=== PATIENT | male | born 1955 | race Caucasian/White ===

== ENCOUNTER 2018-09-26 08:17 | Inpatient (IN) | payer MEDICARE, OTHER ==
[~2018-09-26] VITALS: Ht 172.7 cm; Wt 77.7 kg
[2018-09-26] MEDS ORDERED: NITROGLYCERIN 0.4 MG SUBL TABLET As Ordered ONE (08:25)
[2018-09-26] MEDS ORDERED: methylPREDNISolone INJ 125 MG/2 ML VIAL (J2930) IV ONE (08:30)
[2018-09-26] MEDS ORDERED: SPIR1CAP INH (08:31)
[2018-09-26] MEDS ORDERED: VENTAER INH (08:31)
[2018-09-26] MEDS: NITROGLYCERIN 0.4 MG SUBL TABLET SL PRN ×3 (08:36→08:57)
[2018-09-26] MEDS: IPRATROPIUM 0.5MG/ALBUTEROL 2.5MG INH SOL UD 3ML (DUONEB)(J7620) NEB PRN ×3 (08:36→09:12)
[2018-09-26 08:51] LABS: HEMATOCRIT 44.7 % (42.0-52.0); HEMOGLOBIN 15.1 g/dl (13.5-17.5); MEAN CORPUSCULAR HEMOGLOBIN 31.6 pg (27.0-33.0); MEAN CORPUSCULAR HGB CONC 33.8 g/dl (32.0-36.5); MEAN CORPUSCULAR VOLUME 93.5 fl (80.0-96.0); PLATELET COUNT, AUTOMATED 241 10^3/uL (150-450); RED BLOOD COUNT 4.78 10^6/uL (4.30-6.10)
[2018-09-26] MEDS ORDERED: PROAAER10 INH (08:53)
[2018-09-26 08:55] LABS: ABG HCO3 24.9 MEQ/L (22.0-26.0); ABG O2 SATURATION 99.2 % (95.0-99.0); ABG PARTIAL PRESSURE O2 191.1 mmHg (75.0-100.0); ABG STANDARD HCO3 21.3 MEQ/L (22.0-26.0); ABG TOTAL CO2 26.8 MEQ/L (23.0-31.0)
[2018-09-26 08:56] LABS: ABG PARTIAL PRESSURE CO2 61.6 mmHg (35.0-45.0); ABG pH (ARTERIAL) 7.225 UNITS (7.350-7.450)
--- NOTE | 2018-09-26 08:56 | REP ---
The portable chest, single frontal view, 08:32 a.m.: There are no comparisons. The lung joy are clear. The cardiac size is normal. The gigi, mediastinum, and skeletal structures are unremarkable. Impression: Negative portable chest. Electronically Signed by Phani Pena MD 09/26/2018 08:48 A
[2018-09-26 08:57] VITALS: BP 173/89
[2018-09-26] MEDS ORDERED: MORPHINE 4 MG/ML 1ML VIAL/SYRINGE (J2270) As Ordered ONE (09:12)
[2018-09-26] MEDS ORDERED: MORPHINE 4 MG/ML 1ML VIAL/SYRINGE (J2270) IV ONE (09:15)
[2018-09-26] MEDS ORDERED: ALBUTEROL SULFATE 2.5 MG/0.5 ML INH NEB SOLN NEB ONE (09:15)
[2018-09-26] MEDS ORDERED: MUCI1TAB16 PO (09:21)
[2018-09-26] MEDS ORDERED: SPIR12.9 INH (09:21)
[2018-09-26] MEDS ORDERED: ADVA115A INH (09:21)
[2018-09-26 09:29] LABS: WHITE BLOOD COUNT 10.4 10^3/uL (4.0-10.0)
[2018-09-26 09:32] LABS: EOSINOPHILS 3 % (0-5); LYMPHOCYTES 60 % (16-52); METAMYELOCYTES 1 % (0-0); MONOCYTES 4 % (0-8); NEUTROPHILS 32 % (35-75); PLATELET ESTIMATE NORMAL (NORMAL)
[2018-09-26 09:56] LABS: ALBUMIN 3.9 GM/DL (3.2-5.2); ALT/SGPT 24 U/L (12-78); BILIRUBIN,DIRECT 0.1 MG/DL (0.0-0.2); BILIRUBIN,TOTAL 0.4 MG/DL (0.2-1.0); BLOOD UREA NITROGEN 23 MG/DL (7-18); CALCIUM LEVEL 8.6 MG/DL (8.8-10.2); CARBON DIOXIDE LEVEL 25 MEQ/L (21-32); CHLORIDE LEVEL 111 MEQ/L (98-107); CK-MB VALUE MASS 6.4 NG/ML (<3.6); CPK CREATINE PHOSPHOKINASE 514 U/L (39-308); CREATININE FOR GFR 1.21 MG/DL (0.70-1.30); FREE T4 1.07 NG/DL (0.76-1.46); GLOMERULAR FILTRATION RATE > 60.0 (>49); GLUCOSE, FASTING 186 MG/DL (70-100); LIPASE 113 U/L (73-393); MB/CK RELATIVE INDEX 1.25 (< OR =4); NT-PRO BNP 32 PG/ML (<125); POTASSIUM SERUM 4.4 MEQ/L (3.5-5.1); SODIUM LEVEL 143 MEQ/L (136-145); TOTAL PROTEIN 7.1 GM/DL (6.4-8.2); TROPONIN I 0.02 NG/ML (< 0.10)
[2018-09-26] MEDS ORDERED: ISOVUE-370 76% 100ML VIAL (Q9967) As Ordered ONE (10:13)
[2018-09-26 11:03] LABS: ABG BASE EXCESS -5.3 (-2.0-2.0); ABG HCO3 20.2 MEQ/L (22.0-26.0); ABG PARTIAL PRESSURE CO2 39.6 mmHg (35.0-45.0); ABG PARTIAL PRESSURE O2 92.4 mmHg (75.0-100.0); ABG STANDARD HCO3 20.1 MEQ/L (22.0-26.0); ABG TOTAL CO2 21.4 MEQ/L (23.0-31.0); ABG pH (ARTERIAL) 7.326 UNITS (7.350-7.450)
--- NOTE | 2018-09-26 11:24 | REP ---
CT of the chest with IV contrast, CT pulmonary artery angiography protocol: The pulmonary arteries are suboptimally opacified as a consequence of timing the scan to the IV contrast bolus. There are no emboli are identified in the pulmonary trunk or central pulmonary arteries. No emboli are identified in the pulmonary lobe or segment branches. There are no infiltrates or pleural effusions. There are no masses or nodules. There is no mediastinal or hilar lymphadenopathy or mass. There is no axillary lymphadenopathy. The thoracic aorta is unremarkable. The cardiac size is normal. There is a 4.6 cm hiatal hernia. The visualized upper abdominal contents are, otherwise, unremarkable except for surgical clips in the left upper quadrant. Impression: The pulmonary arteries are suboptimally opacified. No pulmonary emboli are identified. Hiatal hernia. Surgical clips in the abdominal left upper quadrant. Lung joy are clear. Electronically Signed by Phani Pena MD 09/26/2018 11:16 A
--- NOTE | 2018-09-26 11:28 | REP ---
CT of the abdomen pelvis with IV contrast, without bowel contrast: The studies performed. Contiguous with the chest CT. There is a hiatal hernia. There are surgical clips in the abdominal left upper quadrant. The visualized lower lung joy otherwise unremarkable. The hepatic parenchyma is homogeneous. The gallbladder, pancreas and spleen are normal size and unremarkable. The adrenals are unremarkable. The kidneys are unremarkable. The abdominal aorta is unremarkable. There is no bowel distension or obstruction. There are no diverticula. The bowel and mesentery are otherwise unremarkable. Pelvis: The appendix is unremarkable. The bladder is unremarkable. There is no pelvic adenopathy or ascites. Impression: Hiatal hernia. Surgical clips in the left upper quadrant. No diverticula. No ascites, adenopathy or mass. Otherwise, negative CT of the abdomen and pelvis. Electronically Signed by Phani Pena MD 09/26/2018 11:20 A
[2018-09-26] MEDS ORDERED: IPRATROPIUM 0.5MG/ALBUTEROL 2.5MG INH SOL UD 3ML (DUONEB)(J7620) NEB PRN (12:30)
--- NOTE | 2018-09-26 12:48 | HPEPDOC ---
General Date of Admission Sep 26, 2018 at 12:23 Chief Complaint The patient is a 62-year-old male who presented to the ER with complaints of sh ortness of breath History of Present Illness Patient is a 62-year-old male with a PMHx of Alpha-1 antitrypsin deficiency, chronic active smoker, Hx of Orthostatic hypotension, Esophageal ulcers s/p surgical tube placement (2003) who presented to the ER with compla ins of shortness of breath. Patient has reported that he is originally from [place] and was camping in the [facility] since last Friday. Patient reports that around that time. Hes been coughing and expressing a runny nose. Denies any sore throat or watery eyes. Patient reports that usually he wakes up in the morning and experiences a significant coughing episode, which helps to resolve his breathing difficulty. This morning patient had the same event, however, was unable to relieve his sh ortness of breath. Patient reports that he takes Mucinex 1200 twice a day regularly at the directio n of his sharepoint application developer, Dr. Cruz in [place]. Patient reported that today he was coughing and was unable to clear his secretions progressed to worsening of his shortness of breath and associated wheezing. Patient denied any chest pain, palpitations or fevers / chills. Upon arrival to the emergency room, patient was in severe respiratory distress and he was found to be saturating at 79% on room air. Patient had an initial ABG collected which had revealed severe respiratory acidosis and patient was placed on a BiPAP device. Patient remained on BiPAP device for several hours and repeat ABG showed resolution of his respiratory acidosis. Currently patient denies any nausea, vomiting, abdominal pain. Has not yet had a bowel movement today. Denies any urinary discomfort. Patient reports that his weight has increased 40 - 50 pounds over the duration of 1 year. Reports that his appetite has been poor. Home Medications Scheduled Fluticasone Propion/Salmeterol (Advair Hfa 115-21 Mcg Inhaler) 12 Gm Hfa.aer.ad, 2 PUFF INH BID, (Reported) Guaifenesin (Mucinex) 1,200 Mg Tab.er.12h, 1,200 MG PO Q12H, (Reported) Tiotropium Ramer (Spiriva Respimat) 4 Gm Mist.inhal, 2 INHALATION INH DAILY, (Reported) Scheduled PRN Albuterol Sulfate (Proair Hfa) 8.5 Gm Hfa.aer.ad, 2 PUFF INH Q4H PRN for SOB/WHEEZING, (Reported) Allergies Coded Allergies: No Known Allergies (Unverified , 09/26/18) Past Medical History Medical History Alpha-1 antitrypsin deficiency, chronic active smoker, Hx of Orthostatic hypotension, Esophageal ulcers s/p surgical tube placement (2003) Surgical History Hernia repair (2003) Dislocation / fracture of 3rd to 5th digit on Left hand s/p repair Left shoulder injury - s/p repair (03/2018) Family History - Mother in her 90s with reported heart problems - Father with history of Huntingtons disease Social History - Denies the use of illicit drugs; patient is an active smoker of 50 years at 1 [facility]; reports social alcohol use - Denies recent travel or sick contacts - Lives with ; from [place] - Occupation; currently on disability Review of Systems Other systems 10 point review of systems complete, all negative otherwise stated in HPI Vital Signs - Vitals: BP 126/60, HR 87, RR 22, Sat 97%NC2L, Temp - General: Lying in bed, No acute distress, Currently can talk in full sentence s, AAOx3 - HEENT: NC, AT, PERRLA - CVS: Tachycardia, +S1S2 - Lungs: Fair air entry bilaterally, Clear to auscultation, No wheezing / rales / rhonchi - Abdomen: Soft, Non-distended, Non-tender, Midline abdominal scar noted - Extremities: No lower extremity edema, No calf tenderness - Neuro: No focal motor or sensory deficit - Skin: No visible rashes Laboratory Data Labs 24H Laboratory Tests 2 09/26/18 08:32: White Blood Count 10.4H, Red Blood Count 4.78, Hemoglobin 15.1, Hematocrit 44.7, Mean Corpuscular Volume 93.5, Mean Corpuscular Hemoglobin 31.6, Mean Corpuscular Hemoglobin Concent 33.8, Red Cell Distribution Width 12.9, Platelet Count 241, Lymphocytes # (Auto) , Nucleated Red Blood Cells % (auto) 0.0, Neutrophils 32L, Lymphocytes (Manual) 60H, Monocytes (Manual) 4, Eosinophils (Manual) 3, Metamyelocytes 1H, Platelet Estimate NORMAL, Anion Gap 7L, Glomerular Filtration Rate > 60.0, Calcium Level 8.6L, Aspartate Amino Transf (AST/SGOT) 33, Alanine Aminotransferase (ALT/SGPT) 24, Alkaline Phosphatase 65, Total Bilirubin 0.4, Di rect Bilirubin 0.1, Total Creatine Kinase 514H, Creatine Kinase MB 6.4H, Creatine Kinase MB Relative Index 1.25, Troponin I 0.02, PX-Byv-X-Type Natriuretic Peptide 32, Total Protein 7.1, Albumin 3.9, Albumin/Globulin Ratio 1.22, Lipase 113, Thyroid Stimulating Hormone (TSH) 2.600, Free Thyroxine 1.07 09/26/18 08:50: Blood Gas Bicarbonate Standard 21.3L, Arterial Blood pH 7.225*L, Arterial Blood Partial Pressure CO2 61.6*H, Arterial Blood Partial Pressure O2 191.1H, Arterial Blood Total CO2 26.8, Arterial Blood HCO3 24.9, Arterial Blood Base Excess - 4.0L, Arterial Blood Oxygen Saturation 99.2H 09/26/18 10:02: POC Glucose (Misc Panel) 236H, POC Sodium (Misc Panel) 143, POC Potassium (Misc Panel) 4.0, POC Chloride (Misc Panel) 107, POC Total CO2 (Misc Panel) 24.0, POC Blood Urea Nitrogen (Misc Panel 23, POC Ionized Calcium (Misc Panel) 4.7, POC Creatinine (Misc Panel) 1.1, POC Hematocrit (Misc Panel) 44.0 09/26/18 10:53: Blood Gas Bicarbonate Standard 20.1L, Arterial Blood pH 7.326L, Arterial Blood Partial Pressure CO2 39.6, Arterial Blood Partial Pressure O2 92.4, Arterial Blood Total CO2 21.4L, Arterial Blood HCO3 20.2L, Arterial Blood Base Excess - 5.3L, Arterial Blood Oxygen Saturation 97.0 CBC/BMP Laboratory Tests 09/26/18 08:32 Red Blood Count 4.78, Mean Corpuscular Volume 93.5, Mean Corpuscular Hemoglobin 31.6, Mean Corpuscular Hemoglobin Concent 33.8, Red Cell Distribution Width 12.9, Lymphocytes # (Auto) Plan / VTE VTE Prophylaxis Ordered?: Yes Plan Plan Shortness of breath - likely 2/2 acute hypoxic and hypercapnic respiratory failure - Patient has an underlying history of alpha-1 antitrypsin deficiency - He is also an active smoker of 50 years at 1 [facility] - Upon arrival to ER, patient was found to be in respiratory distress and saturating at 79% on room air - Was initially placed on BiPAP for respiratory acidosis on ABG - Repeat ABG has shown improvement and patient has been transitioned off BiPAP - Physical currently still reveals diffuse expiratory wheezing - CXR 09/26: Negative portable chest. - CTA Chest 09/26: The pulmonary arteries are suboptimally opacified. No pulmonary emboli are identified. Hiatal hernia. Surgical clips in the abdominal left upper quadrant. Lung joy are clear. - s/p Solumedrol 125 mg in ER - Will c/w Solumedrol 60 q8h - Will start Duoneb inhaled therapy; c/w Advair and Spiriva - Will start Azithromycin for immunomodulatory effect - Will c/w Guaifenesin and add NAC inhaled therapy to help clear secretions Initially had reported some abdominal discomfort - History of esophageal ulcers s/p surgical tube placement (2003) - Currently, patient plans of abdominal pain; and denies nausea or vomiting - Physical without any abdominal tenderness - CT abdomen / pelvis 09/26: Hiatal hernia. Surgical clips in the left upper quadrant. No diverticula. No ascites, adenopathy or mass. Otherwise, negative CT of the abdomen and pelvis. - Will start diet Leukocytosis - Review systems is negative for any source of infection - Vision is not consistent with any developing pneumonia - Will continue to monitor Hx of Orthostatic hypotension - Patient currently does not take any medications for this - Has not experienced any symptoms; was advised to transition from laying to sitting to standing position slowly DVT prophylaxis - Will start Heparin MARK LAU MD Sep 26, 2018 12:48
[2018-09-26] MEDS: IPRATROPIUM 0.5MG/ALBUTEROL 2.5MG INH SOL UD 3ML (DUONEB)(J7620) NEB SCH ×2 (14:00→20:48)
[2018-09-26 14:05] VITALS: BP 136/85
[2018-09-26] MEDS: TIOTROPIUM INHALER/CAPSULE (SPIRIVA) INH SCH (14:26)
[2018-09-26] MEDS: ADVAIR HFA 230/21MCG INHALER INH SCH ×2 (14:26→20:49)
[2018-09-26] MEDS: AZITHROMYCIN INJ 500 MG, VIAL MATE ADAPTER 1 EACH in D5W 250 ML IV SCH (14:39)
[2018-09-26] MEDS: HEPARIN SOD (PORCINE) 5000 UNITS/ML VIAL SC SCH ×2 (14:39→21:12)
[2018-09-26 15:20] LABS: CK-MB VALUE MASS 7.1 NG/ML (<3.6); CPK CREATINE PHOSPHOKINASE 459 U/L (39-308); MB/CK RELATIVE INDEX 1.55 (< OR =4); TROPONIN I < 0.02 NG/ML (< 0.10)
[2018-09-26] MEDS: guaiFENesin ER 600 MG TAB PO SCH ×2 (15:49→21:12)
[2018-09-26 16:00] VITALS: BP 129/80
[2018-09-26] MEDS: methylPREDNISolone INJ 125 MG/2 ML VIAL (J2930) IV SCH (18:54)
[2018-09-26 20:00] VITALS: BP_SYST 147; BP_SYST 176; BP_DIAS 76; BP_DIAS 92
[2018-09-26] MEDS: ACETYLCYSTEINE 10% 30 ML VIAL INH SCH (20:48)
[2018-09-26 20:55] LABS: CK-MB VALUE MASS 6.9 NG/ML (<3.6); CPK CREATINE PHOSPHOKINASE 535 U/L (39-308); MB/CK RELATIVE INDEX 1.29 (< OR =4); TROPONIN I < 0.02 NG/ML (< 0.10)
[2018-09-26 23:59] VITALS: BP 140/86
[2018-09-27] MEDS: methylPREDNISolone INJ 125 MG/2 ML VIAL (J2930) IV SCH (00:53)
[2018-09-27] MEDS: IPRATROPIUM 0.5MG/ALBUTEROL 2.5MG INH SOL UD 3ML (DUONEB)(J7620) NEB SCH ×4 (01:59→20:00)
[2018-09-27 04:00] VITALS: BP 135/79
[2018-09-27] MEDS: HEPARIN SOD (PORCINE) 5000 UNITS/ML VIAL SC SCH ×3 (05:05→20:41)
[2018-09-27 05:48] LABS: BASO % 0.1 % (0.0-1.0); HEMATOCRIT 41.4 % (42.0-52.0); HEMOGLOBIN 14.1 g/dl (13.5-17.5); LYMPH # 1.5 10^3/uL (1.5-4.5); LYMPH % 13.2 % (24.0-44.0); MEAN CORPUSCULAR HEMOGLOBIN 31.3 pg (27.0-33.0); MEAN CORPUSCULAR HGB CONC 34.1 g/dl (32.0-36.5); MEAN CORPUSCULAR VOLUME 91.8 fl (80.0-96.0); MONO # 0.3 10^3/uL (0.0-0.8); MONO % 2.7 % (0.0-5.0); NEUTROPHILS # 9.2 10^3/uL (1.8-7.7); NEUTROPHILS % 83.5 % (36.0-66.0); PLATELET COUNT, AUTOMATED 198 10^3/uL (150-450); RED BLOOD COUNT 4.51 10^6/uL (4.30-6.10)
[2018-09-27 06:17] LABS: BLOOD UREA NITROGEN 11 MG/DL (7-18); CALCIUM LEVEL 8.8 MG/DL (8.8-10.2); CARBON DIOXIDE LEVEL 26 MEQ/L (21-32); CHLORIDE LEVEL 107 MEQ/L (98-107); CREATININE FOR GFR 1.04 MG/DL (0.70-1.30); GLOMERULAR FILTRATION RATE > 60.0 (>49); GLUCOSE, FASTING 145 MG/DL (70-100); MAGNESIUM LEVEL 2.2 MG/DL (1.8-2.4); SODIUM LEVEL 140 MEQ/L (136-145)
--- NOTE | 2018-09-27 06:56 | ECGEPIP ---
[facility] - ED Test Date: 2018-09-26 Pat Name: PADMINI BOYER Department: Room: - Gender: Male Director Data Processing: DESTINY : 1955 Requested By: PERNELL Silverio Order Number: [id number] Reading MD: Álvaro Sewell Measurements Intervals [place] Rate: 127 P: 78 ND: 155 QRS: 57 QRSD: 86 T: 54 QT: 305 QTc: 443 Interpretive Statements SINUS TACHYCARDIA POSSIBLE LEFT ATRIAL ENLARGEMENT NO PRIORS FOR COMPARISON Electronically Signed on 09-27-2018 6:55:49 EDT by Álvaro Sewell
[2018-09-27] MEDS: TIOTROPIUM INHALER/CAPSULE (SPIRIVA) INH SCH (07:57)
[2018-09-27] MEDS: ADVAIR HFA 230/21MCG INHALER INH SCH ×2 (07:57→21:14)
[2018-09-27 07:59] VITALS: BP 115/65
[2018-09-27] MEDS: guaiFENesin ER 600 MG TAB PO SCH ×2 (09:01→20:41)
--- NOTE | 2018-09-27 10:39 | IPNPDOC ---
Text Note Date of Service The patient was seen on 09/27/18. NOTE Subjective: Patient is a 62-year-old male with a PMHx of Alpha-1 antitrypsin deficiency, chronic active smoker, Hx of Orthostatic hypotension, Esophageal ulcers s/p surgical tube placement (2003) who presented to the ER with complains of shortness of breath. Patient has reported that he is originally from [place] and was camping in the [facility] since last Friday. Patient reports that around that time. Hes been coughing and expressing a runny nose. Denies any sore throat or watery eyes. Patient reports that usually he wakes up in the morning and experiences a significant coughing episode, which helps to resolve his breathing difficulty. This morning patient had the same event, however, was unable to relieve his shortness of breath. Patient was admitted to the hospital service for exacerbation of his underlying lung disease. Patient was seen and examined at the bedside. Patient reports that his breathing is doing significantly better. Still reports a cough. Denies any chest pain or palpitations. Denies nausea, vomiting, abdominal pain, constipation, diarrhea, or urinary discomfort. Objective: Vitals (See below) General: Lying in bed, no acute distress, comfortable, AAOx3 HEENT: NC, AT CVS: +S1S2 Lungs: Fair air entry b/l, mild wheezing can be appreciated at bilateral lung joy - however, significant improvement from yesterday Abdomen: Soft, ND, NT, midline abdominal scar noted Extremities: - Edema, - Calf tenderness Assessment and plan: Shortness of breath - likely 2/2 acute hypoxic and hypercapnic respiratory failure - Patient has an underlying history of alpha-1 antitrypsin deficiency and is an active smoker of 50 years at 1 [facility] - Upon arrival to ER, patient was found to be in respiratory distress and saturating at 79% on room air - Was initially placed on BiPAP for respiratory acidosis on ABG; repeat ABG has shown improvement, BIPAP was discontinued - Currently patient has reported improvement in his breathing and physical has revealed improvement in his wheezing - CXR 09/26: Negative portable chest. - CTA Chest 09/26: The pulmonary arteries are suboptimally opacified. No pulmonary emboli are identified. Hiatal hernia. Surgical clips in the abdominal left upper quadrant. Lung joy are clear. - c/w Solumedrol - will taper dose; anticipate transition to prednisone tomorrow - c/w Duoneb inhaled therapy; c/w Advair and Spiriva - c/w Azithromycin for immunomodulatory effect - c/w Guaifenesin and NAC inhaled therapy to help clear secretions s/p Abdominal discomfort - Patient has been tolerating a diet without any complaints of nausea, vomiting or abdominal pain - History of esophageal ulcers s/p surgical tube placement (2003) - CT abdomen / pelvis 09/26: Hiatal hernia. Surgical clips in the left upper quadrant. No diverticula. No ascites, adenopathy or mass. Otherwise, negative CT of the abdomen and pelvis. - c/w Regular diet Leukocytosis - Initially could be reactive; currently could be reactive 2/2 corticosteroids - Review systems is negative for any source of infection - Vision is not consistent with any developing pneumonia - Will continue to monitor Hx of Orthostatic hypotension - Patient currently does not take any medications for this - Has not experienced any symptoms; was advised to transition from laying to sitting to standing position slowly DVT prophylaxis - c/w Heparin Disposition: - Anticipate discharge within 24-48 hours VS,Radha, I+O VS, Radha I+O Laboratory Tests 09/27/18 05:19 Red Blood Count 4.51, Mean Corpuscular Volume 91.8, Mean Corpuscular Hemoglobin 31.3, Mean Corpuscular Hemoglobin Concent 34.1, Red Cell Distribution Width 12.9, Neutrophils (%) (Auto) 83.5 H, Lymphocytes (%) (Auto) 13.2 L, Monocytes (% ) (Auto) 2.7, Eosinophils (%) (Auto) 0.0, Basophils (%) (Auto) 0.1, Neutrophils # (Auto) 9.2 H, Lymphocytes # (Auto) 1.5, Monocytes # (Auto) 0.3, Eosinophils # (Auto) 0.0, Basophils # (Auto) 0.0, Calcium Level 8.8 Vital Signs Date Time Temp Pulse Resp B/P (MAP) Pulse Ox O2 Delivery O2 Flow Rate FiO2 09/27/18 09:07 1.0 09/27/18 07:59 98.0 80 18 115/65 (82) 93 09/26/18 09:22 NIPPV (BIPAP/CPAP) 25 I&O- Last 24 Hours up to 6 AM 09/27/18 06:00 Intake Total 1695 ml Output Total 2025 ml Balance -330 ml MARK LAU MD Sep 27, 2018 10:39
[2018-09-27 11:51] VITALS: BP 121/68
[2018-09-27] MEDS: ACETYLCYSTEINE 10% 30 ML VIAL INH SCH ×2 (12:19→20:00)
[2018-09-27] MEDS: methylPREDNISolone INJ 40 MG/1 ML VIAL (J2920) IV SCH (12:56)
[2018-09-27] MEDS: AZITHROMYCIN INJ 500 MG, VIAL MATE ADAPTER 1 EACH in D5W 250 ML IV SCH (12:56)
[2018-09-27 15:40] VITALS: BP 137/76
[2018-09-27 22:01] VITALS: BP 127/77
[2018-09-28] MEDS: methylPREDNISolone INJ 40 MG/1 ML VIAL (J2920) IV SCH (01:14)
[2018-09-28] MEDS: IPRATROPIUM 0.5MG/ALBUTEROL 2.5MG INH SOL UD 3ML (DUONEB)(J7620) NEB SCH ×2 (01:21→07:08)
[2018-09-28] MEDS: HEPARIN SOD (PORCINE) 5000 UNITS/ML VIAL SC SCH (05:49)
[2018-09-28 05:55] VITALS: BP 124/78
[2018-09-28 06:32] LABS: BASO % 0.1 % (0.0-1.0); HEMATOCRIT 40.8 % (42.0-52.0); HEMOGLOBIN 13.9 g/dl (13.5-17.5); LYMPH # 1.4 10^3/uL (1.5-4.5); LYMPH % 9.8 % (24.0-44.0); MEAN CORPUSCULAR HEMOGLOBIN 30.5 pg (27.0-33.0); MEAN CORPUSCULAR HGB CONC 34.1 g/dl (32.0-36.5); MEAN CORPUSCULAR VOLUME 89.7 fl (80.0-96.0); MONO # 0.5 10^3/uL (0.0-0.8); MONO % 3.4 % (0.0-5.0); NEUTROPHILS # 11.9 10^3/uL (1.8-7.7); NEUTROPHILS % 86.3 % (36.0-66.0); PLATELET COUNT, AUTOMATED 193 10^3/uL (150-450); RED BLOOD COUNT 4.55 10^6/uL (4.30-6.10); WHITE BLOOD COUNT 13.7 10^3/uL (4.0-10.0)
[2018-09-28 06:51] LABS: BLOOD UREA NITROGEN 16 MG/DL (7-18); CALCIUM LEVEL 8.8 MG/DL (8.8-10.2); CARBON DIOXIDE LEVEL 27 MEQ/L (21-32); CHLORIDE LEVEL 106 MEQ/L (98-107); CREATININE FOR GFR 1.07 MG/DL (0.70-1.30); GLOMERULAR FILTRATION RATE > 60.0 (>49); GLUCOSE, FASTING 135 MG/DL (70-100); MAGNESIUM LEVEL 2.4 MG/DL (1.8-2.4); SODIUM LEVEL 138 MEQ/L (136-145)
[2018-09-28] MEDS: ADVAIR HFA 230/21MCG INHALER INH SCH (07:09)
[2018-09-28] MEDS: TIOTROPIUM INHALER/CAPSULE (SPIRIVA) INH SCH (07:09)
[2018-09-28] MEDS ORDERED: PRED10TA2 PO (07:50)
[2018-09-28] MEDS ORDERED: PROAAER10 INH (07:50)
[2018-09-28] MEDS ORDERED: ADVA115A INH (07:50)
[2018-09-28] MEDS ORDERED: SPIR12.9 INH (07:50)
[2018-09-28] MEDS: guaiFENesin ER 600 MG TAB PO SCH (08:19)
--- NOTE | 2018-09-28 09:39 | DS.PDOC ---
Discharge Summary General Date of Admission Sep 26, 2018 at 12:23 Date of Discharge 09/28/2018 Discharge Summary PROCEDURES PERFORMED DURING STAY: [None]. ADMITTING DIAGNOSES / DISCHARGE DIAGNOSES: Shortness of breath - likely 2/2 acute hypoxic and hypercapnic respiratory failure Alpha-1 antitrypsin deficiency Active smoker s/p Abdominal discomfort Leukocytosis Hx of Orthostatic hypotension DVT prophylaxis COMPLICATIONS/CHIEF COMPLAINT: Shortness of breath HISTORY OF PRESENT ILLNESS: Patient is a 62-year-old male with a PMHx of Alpha-1 antitrypsin deficiency, chronic active smoker, Hx of Orthostatic hypotension, Esophageal ulcers s/p surgical tube placement (2003) who presented to the ER with complains of shortness of breath. Patient has reported that he is originally from [place] and was camping in the [facility] since last Friday. Patient reports that around that time. Hes been coughing and expressing a runny nose. Denies any sore throat or watery eyes. Patient reports that usually he wakes up in the morning and experiences a significant coughing episode, which helps to resolve his breathing difficulty. This morning patient had the same event, however, was unable to relieve his shortness of breath. Patient was admitted to the hospital service for exacerbation of his underlying lung disease. HOSPITAL COURSE: Shortness of breath - likely 2/2 acute hypoxic and hypercapnic respiratory failure - Patient has an underlying history of alpha-1 antitrypsin deficiency and is an active smoker of 50 years at 1 [facility] - Upon arrival to ER, patient was found to be in respiratory distress and saturating at 79% on room air - Was initially placed on BiPAP for respiratory acidosis on ABG; repeat ABG has shown improvement, BIPAP was discontinued - Currently patient has reported improvement in his breathing and physical has revealed improvement in his wheezing - CXR 09/26: Negative portable chest. - CTA Chest 09/26: The pulmonary arteries are suboptimally opacified. No pulmonary emboli are identified. Hiatal hernia. Surgical clips in the abdominal left upper quadrant. Lung joy are clear. - Will start Prednisone today and continue with taper upon discharge; Will DC Solumedrol - c/w Duoneb inhaled therapy; c/w Advair and Spiriva - will provide renewal on discharge - Will DC Azithromycin - c/w Guaifenesin and NAC inhaled therapy to help clear secretions - Advised to follow up with Sleeping Car Conductor in [place] (Dr. Cruz) within 7 days s/p Abdominal discomfort - Patient has been tolerating a diet without any complaints of nausea, vomiting or abdominal pain - History of esophageal ulcers s/p surgical tube placement (2003) - CT abdomen / pelvis 09/26: Hiatal hernia. Surgical clips in the left upper quadrant. No diverticula. No ascites, adenopathy or mass. Otherwise, negative CT of the abdomen and pelvis. - c/w Regular diet Leukocytosis - Initially could be reactive; currently could be reactive 2/2 corticosteroids - Review systems is negative for any source of infection - Imaging not consistent with any developing pneumonia - Will continue to monitor Hx of Orthostatic hypotension - Patient currently does not take any medications for this - Has not experienced any symptoms; was advised to transition from laying to sitting to standing position slowly DVT prophylaxis - c/w Heparin DISCHARGE MEDICATIONS: Please see below. ALLERGIES: Please see below. PHYSICAL EXAMINATION ON DISCHARGE: Vitals (See below) General: Lying in bed, no acute distress, comfortable, AAOx3 HEENT: NC, AT CVS: +S1S2 Lungs: Air entry is fair bilaterally with mild wheezing appreciated bilaterally at lower lung joy. No rhonchi or rales Abdomen: Soft, nondistended and nontender, midline abdominal scar noted Extremities: No evidence of edema, - Calf tenderness LABORATORY DATA: Please see below. ACTIVITY: [As tolerated]. DISCHARGE PLAN: Follow-up with Sleeping Car Con[employer] within 7 days; Dr. Cruz in [place] Remain compliant with treatment plan and medications Return to ER if you experience any problems DISPOSITION: Home DISCHARGE CONDITION: [Stable]. TIME SPENT ON DISCHARGE: 35 minutes Vital Signs/I&Os Vital Signs Date Time Temp Pulse Resp B/P (MAP) Pulse Ox O2 Delivery O2 Flow Rate FiO2 09/28/18 05:55 97.8 76 18 124/78 (93) 96 09/27/18 19:50 1.5 09/26/18 09:22 NIPPV (BIPAP/CPAP) 25 I&O- Last 24 Hours up to 6 AM 09/28/18 06:00 Intake Total 2280 ml Output Total 400 ml Balance 1880 ml Laboratory Data Labs 24H Laboratory Tests 2 09/28/18 06:18: Immature Granulocyte % (Auto) 0.4, White Blood Count 13.7H, Red Blood Count 4.55, Hemoglobin 13.9, Hematocrit 40.8L, Mean Corpuscular Volume 89.7, Mean Corpuscular Hemoglobin 30.5, Mean Corpuscular Hemoglobin Concent 34.1, Red Cell Distribution Width 13.1, Platelet Count 193, Neutrophils (%) (Auto) 86.3H, Lymphocytes (%) (Auto) 9.8L, Monocytes (%) (Auto) 3.4, Eosinophils (%) (Auto) 0.0, Basophils (%) (Auto) 0.1, Neutrophils # (Auto) 11.9H, Lymphocytes # (Auto) 1.4L, Monocytes # (Auto) 0.5, Eosinophils # (Auto) 0.0, Basophils # (Auto) 0.0, Nucleated Red Blood Cells % (auto) 0.0, Anion Gap 5L, Glomerular Filtration Rate > 60.0, Blood Urea Nitrogen 16, Creatinine 1.07, Sodium Level 138, Potassium Level 4.0, Chloride Level 106, Carbon Dioxide Level 27, Calcium Level 8.8, Magnesium Level 2.4 CBC/BMP Laboratory Tests 09/28/18 06:18 Red Blood Count 4.55, Mean Corpuscular Volume 89.7, Mean Corpuscular Hemoglobin 30.5, Mean Corpuscular Hemoglobin Concent 34.1, Red Cell Distribution Width 13.1, Neutrophils (%) (Auto) 86.3 H, Lymphocytes (%) (Auto) 9.8 L, Monocytes (%) (Auto) 3.4, Eosinophils (%) (Auto) 0.0, Basophils (%) (Auto) 0.1, Neutrophils # (Auto) 11.9 H, Lymphocytes # (Auto) 1.4 L, Monocytes # (Auto) 0.5, Eosinophils # (Auto) 0.0, Basophils # (Auto) 0.0, Calcium Level 8.8 Microbiology Microbiology 09/26/18 Respiratory Virus Panel (PCR) ([facility]) - Final, Complete Discharge Medications Scheduled Fluticasone Propion/Salmeterol (Advair Hfa 115-21 Mcg Inhaler) 12 Gm Hfa.aer.ad, 2 PUFF INH BID Guaifenesin (Mucinex) 1,200 Mg Tab.er.12h, 1,200 MG PO Q12H, (Reported) Prednisone (Prednisone) 10 Mg Tablet, 10 MG PO TAPER Take 4 tabs daily x 3 days, then 3 tabs daily x 3 days, then 2 tabs daily x 3 days, then 1 tab daily x 3 days and stop Tiotropium Left Hand (Spiriva Respimat) 4 Gm Mist.inhal, 2 INHALATION INH DAILY Scheduled PRN Albuterol Sulfate (Proair Hfa) 8.5 Gm Hfa.aer.ad, 2 PUFF INH Q4H PRN for SOB/WHEEZING Allergies Coded Allergies: No Known Allergies (Unverified , 09/26/18) MARK LAU MD Sep 28, 2018 09:39
== END 2018-09-28 09:50 | disposition home or self-care (01) | DRG 189 ==
LOC: M ED 08:17 → M ED INP 12:23 → M PCU 14:06 → M MS5PR 09-27 15:35
PROVIDERS: ADMIT Internal Medicine; ATTEND Internal Medicine
DX: J96.02 Acute respiratory failure with hypercapnia (principal); E88.01 Alpha-1-antitrypsin deficiency; J96.01 Acute respiratory failure with hypoxia; F17.200 Nicotine dependence, unspecified, uncomplicated; D72.829 Elevated white blood cell count, unspecified; K44.9 Diaphragmatic hernia without obstruction or gangrene; Z79.899 Other long term (current) drug therapy